=== PATIENT | male | born 1970 | race Caucasian/White ===

== ENCOUNTER 2016-11-17 17:25 | Emergency (ER) | payer OTHER ==
--- NOTE | 2016-11-17 18:22 | UC ---
Knee Pain HPI - HPI Summary HPI Summary: 46 y/o male presents to the urgent care c/o left knee pain with swelling s/p twisting his knee at work at 14:40pm today. 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 and he suddenly he felt a sudden pain in his left knee. Pain is 6/10 with walking or flexing his knee. Pain is 3/10 at rest. Patient denies numbness, tingling over his LF lower leg, fever, SOB, chest pain , N/V/D - History of Current Complaint Chief Complaint: UCLowerExtremity Stated Complaint: LEFT KNEE INJURY Time Seen by Provider: 11/17/16 18:11 Hx Obtained From: Patient Onset/Duration: Sudden Onset, Lasting Hours, Still Present Severity Initially: Moderate Severity Currently: Moderate Pain Intensity: 6 Pain Scale Used: 0-10 Numeric Character: Sharp Aggravating Factor(s): Movement, Stairs Alleviating Factor(s): Rest Associated Signs And Symptoms: Positive: Swelling. Negative: Numbness, Tingling Able to Bear Weight: Yes - Risk Factors Septic Arthritis Risk Factor: Negative Gout Risk Factor: Negative - Allergies/Home Medications Allergies/Adverse Reactions: Allergies Allergy/AdvReac Type Severity Reaction Status Date / Time No Known Allergies Allergy Verified 11/17/16 17:36 PMH/Surg Hx/FS Hx/Imm Hx Previously Healthy: Yes - Surgical History Surgical History: Yes Surgery Procedure, Year, and Place: HERNIA REPAIR, REPAIR OF TORN MUSCLE RIGHT SHOULDER - Family History Known Family History: Positive: Cardiac Disease Family History: Prostate cancer, - Social History Occupation: Employed Full-time Lives: With Family Alcohol Use: Occasionally Substance Use Type: None Smoking Status (MU): Never Smoked Tobacco Review of Systems Constitutional: Negative Skin: Negative Eyes: Negative ENT: Negative Respiratory: Negative Cardiovascular: Negative Gastrointestinal: Negative Genitourinary: Negative Motor: Negative Neurovascular: Negative Musculoskeletal: Other: - LF knee pain s/p twisting his knee Neurological: Negative Psychological: Negative All Other Systems Reviewed And Are Negative: Yes Physical Exam Triage Information Reviewed: Yes Appearance: Well-Appearing, No Pain Distress, Well-Nourished, Thin Vital Signs: Initial Vital Signs Temp 99.8 F 11/17/16 17:33 Pulse 93 11/17/16 17:33 Resp 16 11/17/16 17:33 BP 109/70 11/17/16 17:33 Pulse Ox 95 11/17/16 17:33 Vital Signs Reviewed: Yes Eye Exam: Normal Eyes: Positive: Conjunctiva Clear - PERRLA, EOMI, fundi grossly normal ENT Exam: Normal ENT: Positive: Normal ENT inspection, Hearing grossly normal, Pharynx normal, TMs normal Dental Exam: Normal Neck exam: Normal Neck: Positive: Supple, Nontender, No Lymphadenopathy Respiratory Exam: Normal Respiratory: Positive: Chest non-tender, Lungs clear, Normal breath sounds Cardiovascular Exam: Normal Cardiovascular: Positive: RRR, No Murmur, Pulses Normal, Brisk Capillary Refill Abdominal Exam: Normal Abdomen Description: Positive: Nontender, No Organomegaly, Soft. Negative: CVA Tenderness (R), CVA Tenderness (L) Bowel Sounds: Positive: Present Musculoskeletal: Positive: Other: - LF Knee: Pt is able to bear weight and ambulate with mild dificulty due to pain. No surface trauma, soft tissue swelling on the medial aspect on the LF knee. No overlying erythema or warmth. The L knee is without obvious asymmetry or deformity when compared with the R knee. Pt is unable to do deep knee bend or FROM. No effusion or ballottement. No tenderness over the infrapatellar tendon . No tenderness over lateral joint line, positive Tendernes over the medail joint line. No mass of the popliteal fossa. No quadriceps tenderness. No laxity of the ACL. PCL, MCL, or LCL. No collateral ligament laxity to valgus or varus stress. Negative Barbara /Drawer sign. Positive Arsen of the LF knee. Distal motor and neurovascular status intact. Neurological Exam: Normal Psychological Exam: Normal Skin Exam: Normal Knee Pain Course/Dx - Course Course Of Treatment: 46 y/o male presents to the urgent care c/o left knee pain with swelling s/p twisting his knee at work at 14:40pm today. 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 and he suddenly he felt a sudden pain in his left knee. Pain is 6/10 with walking or flexing his knee. Pain is 3/10 at rest. Patient denies numbness, tingling over his LF lower leg, fever, SOB, chest pain, N/V/D. HX obtained. LF knee X-ray ordered. Radiologist interpreted X-ray. Impression:small suprapatellar joint effusion, no acute osseous injury. Pt with possible Ankle sprain or meniscus injury?. Pt's LF knee immobilized with and rafa bandage and knee immobilizer. Pt advised RICE and F/U as soon as possible with DR Luis tomorrow. Rx Naproxen PO to alleviate symptoms of pain and swelling. Pt understood and agreed and left the clinic ambulating, nuerovascular intact and A&Ox3 - Differential Dx/Diagnosis Differential Diagnosis/HQI/PQRI: Bursitis, Contusion, Dislocation, Patellofemoral Syndrome, Sprain, Strain, Tendonitis Provider Diagnoses: 1- Acute Left knee pain Discharge - Discharge Plan Condition: Stable Disposition: HOME Prescriptions: Naproxen TAB* [Naprosyn 250 mg TAB*] 500 mg PO Q8H PRN #30 tab PRN Reason: Pain Patient Education Materials: Knee Sprain (ED) Forms: *Work Release Referrals: Gato Velasco MD [Medical Doctor] - 1 Day [facility] [employer],Destiny Harry [Nurse Practitioner] - If Needed Additional Instructions: 1-Please take medications as directed to alleviate pain and swelling. 2-Please apply ice, elevate your leg and keep it immobilized with the splint. 3- Please f/u with Orthopedic Dr Luis tomorrow for further evaluation and treatment
[2016-11-17 19:29] VITALS: BP 114/76
--- NOTE | 2016-11-17 19:32 | RAD ---
HISTORY: Left knee pain, injury COMPARISONS: None VIEWS: 4, Frontal, lateral, axial, and oblique views of the left knee FINDINGS: BONE DENSITY: Normal. BONES: There is no displaced fracture. JOINTS: There is mild tricompartmental osteoarthritis. There is a small suprapatellar joint effusion. There is no lipohemarthrosis. ALIGNMENT: There is no dislocation. SOFT TISSUES: Unremarkable. OTHER FINDINGS: None. IMPRESSION: SMALL EFFUSION. NO ACUTE OSSEOUS INJURY. IF SYMPTOMS PERSIST, RECOMMEND REPEAT IMAGING.
[2016-11-17] MEDS ORDERED: Naproxen TAB* 250 MG PO ONE (19:59)
== END 2016-11-17 20:09 | disposition home or self-care (01) ==
LOC: UCCORT 17:25
DX: M25.562 Pain in left knee (principal); M25.462 Effusion, left knee
CPT/HCPCS: 99203; A9270-GY; G0463